=== PATIENT | male | born 1970 | race Caucasian/White ===

== ENCOUNTER 2021-06-29 07:45 | Day surgery (SDC) | payer OTHER ==
[~2021-06-29] VITALS: Ht 180.3 cm; Wt 114.4 kg
[2021-06-29] MEDS ORDERED: IBUP100S (08:11)
[2021-06-29] MEDS ORDERED: HYDACE10B (08:12)
== END 2021-06-29 10:30 | disposition home or self-care (01) ==
LOC: ORSCSDS 07:45
PROVIDERS: Surgery
PROC: 0DBC8ZX Excision of Ileocecal Valve, Via Natural or Artificial Opening Endoscopic, Diagnostic (ICD-10-PCS; principal; 2021-06-29 09:00)
DX: Z12.11 Encounter for screening for malignant neoplasm of colon (principal); K57.30 Diverticulosis of large intestine without perforation or abscess without bleeding; F43.10 Post-traumatic stress disorder, unspecified; I10 Essential (primary) hypertension; E66.9 Obesity, unspecified; Z68.36 Body mass index [BMI] 36.0-36.9, adult; Z79.899 Other long term (current) drug therapy
CPT/HCPCS: 88305; J2704; J7120